=== PATIENT | male | born 1970 | race Caucasian/White ===

== ENCOUNTER 2017-06-07 09:53 | Observation (INO) | payer SELFPAY ==
[~2017-06-07] VITALS: Ht 172.7 cm; Wt 83.4 kg
[2017-06-07 10:42] LABS: BASOPHIL COUNT 0.1 K/uL (0-0.1); EOSINOPHIL (%) 0.6 % (0-5); EOSINOPHIL COUNT 0.1 K/uL (0-0.3); HEMATOCRIT 50.2 % (38.0-50.0); IMMATURE GRANULOCYTE (%) 0.5 % (0.0-0.7); IMMATURE GRANULOCYTE COUNT 0.1 K/uL; INSTRUMENT ABS NEUTROPHIL CT 11.8 K/uL; MCH 29.9 PG (29.0-34.0); MCHC 33.1 G/DL (30.0-36.0); MCV 90.5 FL (86-99); MEAN PLAT.VOLUME 10.6 uM^3 (9.0-12.4); MONOCYTE (%) 6.9 % (3-12); MONOCYTE COUNT 1.1 K/uL (0-0.8); NEUTROPHIL (%) 72.8 % (45-76); NEUTROPHIL COUNT 11.8 K/uL (1.8-6.4); PLATELET COUNT 253 K/uL (156-360); RBC DIS.WIDTH-CV 13.4 % (11.8-14.6); RBC DIS.WIDTH-SD 44.7 % (39-53); RED BLOOD COUNT 5.55 M/uL (4.00-5.50); WHITE BLOOD COUNT 16.2 K/uL (4.1-10.2)
[2017-06-07 10:55] LABS: CHLORIDE 107 mEq/L (99-109); POTASSIUM 4.1 mEq/L (3.7-5.4); SODIUM 142 mEq/L (136-147)
[2017-06-07 10:56] LABS: GLUCOSE 129 mg/dL (70-99)
[2017-06-07 10:58] LABS: ANION GAP 14 MEQ/L (2-14)
[2017-06-07 11:00] LABS: GFR ESTIMATE (CALCULATED) > 59 mL/min/
[2017-06-07 11:01] LABS: UREA NITROGEN (BUN) 15 mg/dL (9-23)
[2017-06-07 13:03] LABS: ADD MIUA? YES; BILIRUBIN NEGATIVE; BLOOD SMALL; COLOR AMBER ((YELLOW)); GLUCOSE (STRIP) NEGATIVE; KETONES 5; LEUKOCYTES NEGATIVE; NITRITE NEGATIVE; PROTEIN (STRIP) 30; SPECIFIC GRAVITY 1.028 (1.000-1.030); UROBILINOGEN 0.2 MG/DL (0.2-1.0)
[2017-06-07 13:22] LABS: BACTERIA RARE /HPF; CALCIUM OXALATE CRYSTALS 3+ /HPF; EPITHELIAL CELLS NONE SEEN /HPF; HYALINE CASTS 0-5 /LPF; MUCUS 4+ /LPF; RED BLOOD CELLS 15-20 /HPF (0-5); UCUL ADDED? NO; WHITE BLOOD CELLS 0-5 /HPF (0-5)
[2017-06-07] MEDS ORDERED: FLOMAX0.4 MG PO (13:55)
[2017-06-07] MEDS ORDERED: ZOFRAN ODT4 MG PO (13:55)
[2017-06-07] MEDS ORDERED: PERCOCET 5/31 TABLET PO ×2 (13:56→14:04)
[2017-06-07] MEDS ORDERED: TORADOL10 MG PO (14:03)
[2017-06-07 20:21] VITALS: BP 128/80
[2017-06-08 06:18] LABS: ANION GAP 9 MEQ/L (2-14); CHLORIDE 106 MEQ/L (99-109); GFR ESTIMATE (CALCULATED) 54 mL/min/; GLUCOSE 106 mg/dL (70-99); POTASSIUM 4.2 MEQ/L (3.7-5.4); SAMPLE HEMOLYSIS CHECK 0; SAMPLE ICTERIC CHECK 0; SAMPLE LIPEMIA CHECK 0; SODIUM 137 MEQ/L (136-147); UREA NITROGEN (BUN) 18 mg/dL (9-23)
[2017-06-08 09:58] VITALS: BP 134/73
[2017-06-08] MEDS ORDERED: TORADOL10 MG PO (10:57)
[2017-06-08] MEDS ORDERED: TAMSULOSIN HCL0.4 MG PO ×2 (10:57→11:08)
[2017-06-08 12:16] VITALS: BP 111/60
== END 2017-06-08 14:00 | disposition home or self-care (01) ==
LOC: EME 09:53 → EDOF 18:15 → 5WEST 18:15 → EDOF 18:15 → 5WEST 19:53
PROVIDERS: Emergency Medicine; Internal Medicine
DX: N20.1 Calculus of ureter (principal); F17.200 Nicotine dependence, unspecified, uncomplicated; N28.1 Cyst of kidney, acquired
CPT/HCPCS: 72131; 74176; 80048; 81003; 85025; 99281; 99284; G0378; J1170; J1885; J2270; J2405; J3010; J7030; S0028